=== PATIENT | female | born 1975 | race Caucasian/White ===

== ENCOUNTER 2017-02-20 08:03 | Emergency (ER) | payer OTHER ==
[~2017-02-20] VITALS: Ht 154.9 cm; Wt 82.5 kg
[2017-02-20 08:05] VITALS: Ht 154.9 cm; Wt 82.5 kg
[2017-02-20] MEDS ORDERED: ERYT1OIN6 RIGHT EYE (08:20)
[2017-02-20] MEDS ORDERED: CEPH-443 PO (08:20)
--- NOTE | 2017-02-20 08:23 | ERD ---
ER Documentation Chief Complaint Date/Time DATE: 02/20/17 TIME: 08:21 Chief Complaint pt bib self with c/o right reddness since yesterday, unk cause HPI 41-year-old female presents with right lower eyelid redness, itching and eye redness that started yesterday. Patient went to the pharmacy and asked for any recommendation, has tried [id number] stye medication without much relief. She complains of itching/burning pain, she has not had any drainage, diplopia , blurred vision or visual field deficits. She denies any fevers or chills. She denies any trauma. ROS All systems reviewed and are negative except as per history of present illness. Medications Home Meds Active Scripts Cephalexin* (Keflex*) 500 Mg Capsule, 500 MG PO QID for 7 Days, CAP Prov:NICK CERDA PA-C 02/20/17 Erythromycin (Erythromycin Opth) 3.5 Gm Oint..gm., 1 APPLIC RIGHT EYE QID, #1 Prov:NICK CERDA PA-C 02/20/17 Reported Medications [None] No Conflict Check 03/18/10 Allergies Allergies: Coded Allergies: No Known Allergies (Verified Allergy, Mild, 03/18/10) PMhx/Soc History of Surgery: No Anesthesia Reaction: No Hx Neurological Disorder: No Hx Respiratory Disorders: No Hx Cardiac Disorders: No Hx Psychiatric Problems: No Hx Miscellaneous Medical Probl: No Hx Alcohol Use: No Hx Substance Use: No Hx Tobacco Use: No Smoking Status: Never smoker Physical Exam Vitals Vital Signs Date Time Temp Pulse Resp B/P Pulse Ox O2 Delivery O2 Flow Rate FiO2 02/20/17 08:05 98.3 79 18 118/56 95 Physical Exam General: Well-developed, well-nourished. The patient appears in no acute distress. HEENT: Head is normocephalic, atraumatic. No scleral icterus. Mild conjunctival injection on the right eye, the medial aspect of the lower eyelid of the right eye shows erythema, mild swelling and tenderness to palpation. There is no fluctuance. Her extraocular movements are intact. There are no step-offs. Eyes are reactive to light. Neck: Supple. Nontender. Lungs: Clear to auscultation. Normal air movement. Heart: Regular rate and rhythm. S1 and S2 are normal. No murmurs, gallops, or rubs. Abdomen: Nondistended. Extremities: No clubbing or cyanosis. Moving extremities x 4. No weakness. Neurologic: Alert and oriented 3. No focal deficits. Normal speech and gait. Skin: Normal turgor. No rash or lesions. Procedures/MDM 41-year-old female presents with mild cellulitis below the right eye likely from a bacterial infection. She does not show any signs of vesicular lesions, no signs of herpetic ophthalmicus, corneal ulcer, canthus laceration, lens dislocation, trauma, blowout fracture, acute angle-closure glaucoma, retinal detachment among other department differential diagnosis. Her symptoms are benign, she will be asked to apply erythromycin ointment to the area below the eyelid, take Keflex. Departure Diagnosis: Primary Impression: Periorbital cellulitis of right eye Condition: Good Patient Instructions: Elizabeth-Orbital Cellulitis Additional Instructions: Call your primary care doctor TOMORROW for an appointment during the next 1-2 days.See the doctor sooner or return here if your condition worsens before your appointment time. NICK CERDA PA-C Feb 20, 2017 08:18
== END 2017-02-20 09:49 | disposition home or self-care (01) ==
LOC: FTE 08:03
DX: L03.213 Periorbital cellulitis (principal)
CPT/HCPCS: 99284